=== PATIENT | male | born 1985 | race Caucasian/White ===

== ENCOUNTER 2021-02-11 22:23 | Emergency (ER) | payer OTHER ==
[2021-02-11 22:37] VITALS: BMI 29.2
[2021-02-11 22:49] VITALS: TEMP 99.7
[2021-02-12 00:08] VITALS: BP 149/90; PULSE 100
== END 2021-02-12 00:09 | disposition home or self-care (01) ==
LOC: FER 22:23
DX: R07.9 Chest pain, unspecified (principal)
CPT/HCPCS: 36415; 82550; 82553; 84484; 93005; 99284-25; C9803; U0003; U0005

== ENCOUNTER 2021-02-14 10:57 | Emergency (ER) | payer OTHER ==
[2021-02-14 11:10] VITALS: TEMP 98.2; BMI 29.2
[2021-02-14] MEDS ORDERED: MAG HYDROX/AL HYDROX/SIMETH 30 ML UNIT-DOSE CUP PO ONE (15:12)
[2021-02-14] MEDS ORDERED: FAMOTIDINE 20 MG TABLET PO ONE (15:12)
[2021-02-14] MEDS ORDERED: FAMOTIDINE 20 MG TABLET ONE (15:24)
[2021-02-14] MEDS ORDERED: MAG HYDROX/AL HYDROX/SIMETH 30 ML UNIT-DOSE CUP ONE (15:25)
[2021-02-14 15:27] LABS: BASO % 0.5 % (0-2.0); EOS % 0.3 % (0-4.5); HEMATOCRIT 43.8 % (35.4-49); HEMOGLOBIN 14.9 GM/dL (11.7-16.9); LYMPH % 13.4 % (8-40); MCH 33.7 pg (25.7-33.7); MCHC 33.9 g/dl (32.0-35.9); MEAN CELL VOLUME 99.4 fl (80-96); MEAN PLT VOLUME 8.7 fl (7.5-11.1); MONO % 4.6 % (3.8-10.2); NEUT % 81.2 % (42.8-82.8); PLATELET COUNT 272 10^3/uL (134-434); RBC 4.41 M/mm3 (4.00-5.60); RDW 13.1 % (11.9-15.9); WHITE BLOOD COUNT 8.5 K/mm3 (4.0-10.0)
[2021-02-14 15:31] VITALS: BP 139/98; PULSE 95
[2021-02-14 15:51] LABS: CHLORIDE 103 mmol/L (98-107); SODIUM 139 mmol/L (136-145)
[2021-02-14 15:53] LABS: ALBUMIN 4.7 g/dl (3.4-5.0); ANION GAP 9 MMOL/L (8-16); BLOOD UREA NITROGEN 13.1 mg/dL (7-18); CALCIUM 9.5 mg/dL (8.5-10.1); CO2 26 mmol/L (21-32)
[2021-02-14 15:54] LABS: GLUCOSE,RANDOM 93 mg/dL (74-106); MAGNESIUM 2.2 mg/dL (1.8-2.4)
[2021-02-14 15:56] LABS: CREATININE 0.7 mg/dL (0.55-1.3)
[2021-02-14 15:57] LABS: SGOT/AST 173 U/L (15-37); SGPT/ALT 123 U/L (13-61)
[2021-02-14 15:58] LABS: BILIRUBIN,TOTAL 1.2 mg/dL (0.2-1); TOT PROT 8.2 g/dl (6.4-8.2)
[2021-02-14 15:59] LABS: ALK PHOS 118 U/L (45-117)
[2021-02-14 16:23] LABS: EPI CELLS 5 /uL (0-25.1); HYALINE CASTS 1 /uL (0-3.1); PH,URINE 6.5 (5.0-8.0); URINE APPEARANCE CLEAR; URINE BACTERIA 4 /uL (0-1359); URINE BILIRUBIN NEGATIVE (NEGATIVE); URINE COLOR DK YELLOW; URINE GLUCOSE (UA) NEGATIVE (NEGATIVE); URINE KETONE 1+ (NEGATIVE); URINE LEUK ESTERASE NEGATIVE (NEGATIVE); URINE NITRITE NEGATIVE (NEGATIVE); URINE PROTEIN 1+ (NEGATIVE); URINE RBC 7 /uL (0-23.9); URINE WBC 5 /uL (0-25.8)
== END 2021-02-14 17:36 | disposition home or self-care (01) ==
LOC: JER 10:57
DX: R00.2 Palpitations (principal)
CPT/HCPCS: 36415; 71046-TC-FY; 76705-TC; 80053; 81003; 82550; 82553; 83735; 84443; 84484; 85025; 93005; 93010; 99284-25